=== PATIENT | male | born 1990 | race Asian ===

== ENCOUNTER 2021-12-08 21:33 | Emergency (ER) | payer OTHER ==
--- NOTE | 2021-12-08 21:57 | ED Physician Documentation ---
PD HPI NVD - Stated complaint Stated Complaint: VOMITING BLOOD, BLOODY NOSE, CHILLS - Chief complaint Chief Complaint: Abd Pain - History obtained from History obtained from: Patient - History of Present Illness Timing - onset: Yesterday Timing - duration: Days (11/03) Timing - details: Abrupt onset, Still present Associated symptoms: Loss of appetite, Other (nausea and general weakness, with repetitive vomiting. Has noted red blood from nose and throat after vomiting the past 2-3 times. Some loose stool, but not overt diarrhea.). No: Fever, Abdominal pain Contributing factors: No: Sick contact, Bad food, Travel Improved by: No: Vomiting Worsened by: Eating Similar symptoms before: Has not had sx before Recently seen: Not recently seen Review of Systems Constitutional: reports: Chills, Myalgias, Fatigue. denies: Fever Nose: reports: Congestion, Sinus pressure / pain (has had some frontal sinus pressure and feeling "foggy thinking" for couple of weeks.). denies: Rhinorrhea / runny nose Throat: denies: Sore throat GI: reports: Nausea, Vomiting, Diarrhea. denies: Abdominal Pain, Abdominal Swelling Neurologic: reports: Generalized weakness, Headache (frontal pressure for 1-2 weeks). denies: Near syncope, Altered mental status PD PAST MEDICAL HISTORY - Past Medical History Cardiovascular: None Respiratory: None Neuro: None, Other (denies history of migraines. ) Endocrine/Autoimmune: None GI: None : None Psych: None - Present Medications Home Medications: Ambulatory Orders Medication Instructions Recorded Confirmed Amoxicillin 500 mg PO TID #21 cap 12/09/21 Cetirizine [ZyrTEC] 10 mg PO DAILY #7 tablet 12/09/21 Famotidine [Pepcid] 20 mg PO BID 7 Days #14 tablet 12/09/21 Ondansetron Odt [Zofran] 4 mg TL Q6H PRN #15 tablet 12/09/21 - Allergies Allergies/Adverse Reactions: Allergies Allergy/AdvReac Type Severity Reaction Status Date / Time No Known Drug Allergies Allergy Verified 12/08/21 21:43 PD ED PE NORMAL - Vitals Vital signs reviewed: Yes - General General: Alert and oriented X 3, Well developed/nourished - HEENT HEENT: Ears normal, Pharynx benign. No: Moist mucous membranes - Neck Neck: Supple, no meningeal sign, No adenopathy - Cardiac Cardiac: RRR, No murmur - Respiratory Respiratory: Clear bilaterally - Abdomen Abdomen: Normal bowel sounds, Soft, Non distended, No organomegaly, Other (mild tender epigastric tender without guarding nor rebound. ) - Derm Derm: Normal color, Warm and dry - Extremities Extremities: Normal ROM s pain - Neuro Neuro: Alert and oriented X 3, No motor deficit, Normal speech Results - Vitals Vitals: Vital Signs - 24 hr 12/08/21 12/08/21 12/09/21 21:37 21:43 01:25 Temperature 36.5 C 36.5 C Heart Rate 99 99 89 Respiratory 16 16 17 Rate Blood Pressure 144/93 H 144/93 H 132/67 H O2 Saturation 97 97 99 Oxygen O2 Source Room air - Labs Labs: Laboratory Tests 12/08/21 12/08/21 22:18 22:18 WBC 12.2 H RBC 4.70 Hgb 14.8 Hct 42.5 MCV 90.4 MCH 31.5 H MCHC 34.8 RDW 12.3 Plt Count 317 MPV 9.5 Neut # (Auto) 9.8 H Lymph # (Auto) 1.5 [place] # (Auto) 0.8 Eos # (Auto) 0.0 Baso # (Auto) 0.1 Absolute Nucleated RBC 0.00 Nucleated RBC % 0.0 Sodium 137 Potassium 3.7 Chloride 102 Carbon Dioxide 25 Anion Gap 10.0 BUN 16 Creatinine 1.1 Estimated GFR (MDRD) 78 L Glucose 109 H Calcium 8.7 Total Bilirubin 0.4 AST 29 ALT 34 Alkaline Phosphatase 51 Total Protein 7.0 Albumin 4.0 Globulin 3.0 Albumin/Globulin Ratio 1.3 Lipase 26 PD MEDICAL DECISION MAKING - ED course Complexity details: reviewed results, re-evaluated patient (feeling improved with fluids and meds. ), considered differential (has bleeding slight trickle nasopharynx, and some raw nasal wall on right. Appears sinus/nasopharyngeal bleeding and not hematemesis. He is vomiting, for sure, and will treat with fluids/antiemetics. ), d/w patient Departure - Departure Disposition: 01 Home, Self Care Clinical Impression: Dehydration Nausea and vomiting Qualifiers: Vomiting type: unspecified Qualified Code(s): R11.2 - Nausea with vomiting, unspecified Sinusitis Qualifiers: Sinusitis location: frontal Chronicity: acute Recurrence: non-recurrent Qualified Code(s): J01.10 - Acute frontal sinusitis, unspecified Condition: Stable Record reviewed to determine appropriate education?: Yes Instructions: ED Sinusitis Abx Tx, ED Nausea Vomiting Follow-Up: [facility] [place] [Provider Group] Prescriptions: Amoxicillin 500 mg PO TID #21 cap Famotidine [Pepcid] 20 mg PO BID 7 Days #14 tablet Ondansetron Odt [Zofran] 4 mg TL Q6H PRN #15 tablet PRN Reason: Nausea / Vomiting Cetirizine [ZyrTEC] 10 mg PO DAILY #7 tablet Comments: The bleeding you have seems to be coming from the nasal passage and likely at the sinuses. It sounds like you may have had a sinus infection Preceding this new symptoms. And now sounds like you also have a separate illness with the nausea vomiting and general illness. This may be a viral gastrointestinal illness and there has been one "going around". We did do a Covid test as well and that should result in a day or 2. Amoxicillin 3 times a day for a week for the apparent sinus infection. You can use some saline nasal spray to cleanse the nasal passages a few times daily. Cetirizine daily for a week for congestion. Small frequent fluids and bland food initially. Famotidine acid reducing medicine twice daily for a week as your stomach would have gotten rale with the vomiting. Use ondansetron if needed for nausea. Tylenol if needed for fevers or aches. Recheck if not improving well over the next couple of days. Off work the next couple of days. I transmitted your prescriptions to the pharmacy on the [facility]. You have a Covid test pending. You need to self quarantine until the result is done and negative. Do not leave your house. Do not get near anybody. The results should be done in 48 to 72 hours, but sometimes longer. We will call with a positive result, the fastest way to get a negative result for confirmation though is to go to the hospital website at [email or web address], click [facility] the [facility] and sign up for the patient portal. If any friends or family get sick and would like to have a Covid test done, but do not have signs or symptoms that would necessitate being hospitalized, we encourage testing throughone of the local pharmacies or the Health Department. Call them to schedule an appointment. Forms: Activity restrictions Discharge Date/Time: 12/09/21 01:33
[2021-12-08] MEDS ORDERED: SODIUM CHLORIDE 0.9% 1,000 ML IV STA ×2 (22:13→22:32)
[2021-12-08] MEDS ORDERED: KETOROLAC 30 MG/ML VIAL IVP STA (22:14)
[2021-12-08] MEDS ORDERED: AMOXICILLIN 250 MG CAPSULE PO STA (22:14)
[2021-12-08] MEDS ORDERED: ONDANSETRON 4 MG/2 ML VIAL IVP STA (22:14)
[2021-12-08] MEDS ORDERED: FAMOTIDINE 20 MG/2 ML VIAL IVP STA (22:14)
[2021-12-08 22:25] LABS: BASOPHILS # (AUTO) 0.1 10^3/uL (0.0-0.1); BASOPHILS % (AUTO) 0.7 %; EOSINOPHILS % (AUTO) 0.2 %; HCT - HEMATOCRIT 42.5 % (42.0-52.0); HGB - HEMOGLOBIN 14.8 g/dL (14.0-18.0); LYMPHOCYTES # (AUTO) 1.5 10^3/uL (1.5-3.5); LYMPHOCYTES % (AUTO) 12.1 %; MEAN CORPUSCULAR HEMOGLOBIN 31.5 pg (27.0-31.0); MEAN CORPUSCULAR HGB CONC 34.8 g/dL (32.0-36.0); MEAN CORPUSCULAR VOLUME 90.4 fL (80.0-94.0); MEAN PLATELET VOLUME 9.5 fL (7.4-11.4); MONOCYTES # (AUTO) 0.8 10^3/uL (0.0-1.0); MONOCYTES % (AUTO) 6.4 %; NEUTROPHILS # (AUTO) 9.8 10^3/uL (1.5-6.6); NEUTROPHILS % (AUTO) 80.4 %; PLT - PLATELET COUNT 317 10^3/uL (130-450); RED CELL DISTRIBUTION WIDTH 12.3 % (12.0-15.0); WHITE BLOOD COUNT 12.2 x10^3/uL (4.8-10.8)
[2021-12-08 22:43] LABS: ALBUMIN/GLOBULIN RATIO 1.3 (1.0-2.2); BILIRUBIN,TOTAL 0.4 mg/dL (0.2-1.0); CALCIUM 8.7 mg/dL (8.5-10.3); CREATININE 1.1 mg/dL (0.6-1.2); POTASSIUM 3.7 mmol/L (3.5-5.0)
[2021-12-09] MEDS ORDERED: ONDANSETRON ODT 4 MG Prepack 2 TL PRN (00:25)
[2021-12-09 01:28] VITALS: BP 132/67
== END 2021-12-09 01:33 | disposition home or self-care (01) ==
LOC: ED 21:33
DX: J01.10 Acute frontal sinusitis, unspecified (principal); E86.0 Dehydration; R11.2 Nausea with vomiting, unspecified; Z20.822 Contact with and (suspected) exposure to COVID-19
CPT/HCPCS: 36415; 80053; 83690; 85025; 87635; 96361; 96374; 99283; A9270

== ENCOUNTER 2022-07-28 18:30 | Emergency (ER) | payer OTHER ==
[2022-07-28] MEDS ORDERED: predniSONE 20 MG TABLET PO STA (19:17)
[2022-07-28] MEDS ORDERED: diphenhydrAMINE 25 MG CAPSULE PO STA (19:17)
--- NOTE | 2022-07-28 20:44 | ED Physician Documentation ---
PD HPI SKIN - Stated complaint Stated Complaint: HIVES,LT SIDE FACE NUMB - Chief complaint Chief Complaint: Allergic Rx - History obtained from History obtained from: Patient - Additional information Additional information: The patient comes to the emergency department chief complaint of urticaria/allergic reaction. He states he does not really know what caused it and that he had eaten [employer] for but it was not anything different than he has eaten in the past. The patient is known to have a history of allergy to shrimp but has not eaten any shellfish recently. He states when he had the shrimp he had a very similar reaction. The patient actually received Benadryl and Decadron while waiting to be seen and states his symptoms have completely resolved. He did not have any difficulty breathing but did notice that when his face flushed and he developed the hives, his face went also. He denies any other neurologic symptoms. The patient is otherwise healthy. No other complaints at this time Review of Systems Ten Systems: 10 systems reviewed and negative Constitutional: reports: Reviewed and negative Eyes: reports: Reviewed and negative Ears: reports: Reviewed and negative Nose: reports: Reviewed and negative Throat: reports: Reviewed and negative Cardiac: reports: Reviewed and negative Respiratory: reports: Reviewed and negative GI: reports: Reviewed and negative : reports: Reviewed and negative Skin: reports: Rash Musculoskeletal: reports: Reviewed and negative Neurologic: reports: Reviewed and negative Psychiatric: reports: Reviewed and negative Endocrine: reports: Reviewed and negative Immunocompromised: reports: Reviewed and negative PD PAST MEDICAL HISTORY - Past Medical History Cardiovascular: None Respiratory: None Neuro: None, Other Endocrine/Autoimmune: None GI: None : None Psych: None - Present Medications Home Medications: Ambulatory Orders Medication Instructions Recorded Confirmed predniSONE [Deltasone] 60 mg PO DAILY 3 Days #9 tablet 07/28/22 - Allergies Allergies/Adverse Reactions: Allergies Allergy/AdvReac Type Severity Reaction Status Date / Time No Known Drug Allergies Allergy Verified 07/28/22 18:38 - Social History Does the pt smoke?: No Smoking Status: Never smoker PD ED PE NORMAL - Vitals Vital signs reviewed: Yes - General General: Alert and oriented X 3, No acute distress, Well developed/nourished - HEENT HEENT: Atraumatic, PERRL, EOMI, Moist mucous membranes - Neck Neck: Supple, no meningeal sign - Cardiac Cardiac: RRR, No murmur, Strong equal pulses - Respiratory Respiratory: No respiratory distress, Clear bilaterally - Abdomen Abdomen: Soft, Non tender, Non distended - Derm Derm: Normal color, Warm and dry, No rash - Extremities Extremities: No deformity, No edema - Neuro Neuro: Alert and oriented X 3 - Psych Psych: Normal mood, Normal affect Results - Vitals Vitals: Vital Signs - 24 hr 07/28/22 07/28/22 07/28/22 18:32 19:28 21:00 Temperature 36.6 C 36.6 C Heart Rate 99 79 72 Respiratory 18 16 16 Rate Blood Pressure 145/80 H 128/84 H 122/79 O2 Saturation 97 97 98 Oxygen O2 Source Room air PD MEDICAL DECISION MAKING - ED course Complexity details: considered differential, d/w patient, d/w family ED course: The patient's symptoms had completely resolved and I felt he was stable for discharge home. We have discussed treatment of any recurrent symptoms and the usual indications for follow-up and return. Departure - Departure Disposition: 01 Home, Self Care Clinical Impression: Allergic urticaria Condition: Stable Instructions: ED Allergic Reaction General Other Prescriptions: predniSONE [Deltasone] 60 mg PO DAILY 3 Days #9 tablet Comments: A prescription for prednisone has been electronically transmitted to the [facility] pharmacy. You may take this daily for the next few days, plus Benadryl 25 to 50 mg every 4-6 hours if needed for recurrence of allergic symptoms. Please follow-up with your doctor for further concerns in this regard. If you begin to experience swelling of your throat or shortness of breath/difficulty breathing again please return to the emergency department. Discharge Date/Time: 07/28/22 21:21
[2022-07-28 21:01] VITALS: BP 122/79
== END 2022-07-28 21:21 | disposition home or self-care (01) ==
LOC: ED 18:30
DX: L50.0 Allergic urticaria (principal)
CPT/HCPCS: 99282; A9270; J7512

== ENCOUNTER 2022-08-07 11:37 | Emergency (ER) | payer OTHER ==
[2022-08-07] MEDS ORDERED: LIDOCAINE PATCH 5% TOP STA (12:03)
[2022-08-07] MEDS ORDERED: methocarbamoL 500 MG TABLET PO STA (12:03)
[2022-08-07] MEDS ORDERED: KETOROLAC 30 MG/ML VIAL IM STA (12:03)
[2022-08-07] MEDS ORDERED: DEXAMETHASONE 10 MG/ML VIAL IM STA (12:03)
--- NOTE | 2022-08-07 12:03 | ED Physician Documentation ---
PD HPI BACK PAIN - Stated complaint Stated Complaint: L LOWER BACK PX-SWOLLEN - Chief complaint Chief Complaint: Back Pain - History obtained from History obtained from: Patient - History of Present Illness Timing - onset: Chronic - Additional information Additional information: 32-year-old male presents for evaluation of 1 day of severe left-sided lumbar back pain and swelling. Patient states that he has had chronic issues with his lumbar back, he has been requesting to have his massage his lumbar muscles nightly because of pain. Last night the pain was much more severe and there is a large area of swelling over his left hip and lumbar back.He has intermittently been taking 200 mg of ibuprofen for his pain, however this is only helping somewhat. Denies midline back pain, denies saddle anesthesia, denies bowel or bladder incontinence, denies numbness or weakness of his lower extremities.Patient's states that she has been trying to get him to go to physical therapy for his back issues, however he has been reluctant to do so. Review of Systems Ten Systems: 10 systems reviewed and negative Constitutional: denies: Fever, Chills, Myalgias Respiratory: denies: Dyspnea, Cough, Wheezing : denies: Dysuria, Frequency, Hesitancy, Unable to Void Musculoskeletal: reports: Back pain, Joint pain. denies: Neck pain, Extremity pain Neurologic: denies: Generalized weakness, Focal weakness, Numbness, Difficulty speaking, Near syncope PD PAST MEDICAL HISTORY - Past Medical History Cardiovascular: None Respiratory: None Neuro: None, Other Endocrine/Autoimmune: None GI: None : None Psych: None - Present Medications Home Medications: Ambulatory Orders Medication Instructions Recorded Confirmed Lidocaine Patch 5% [Lidoderm Patch] 1 each TOP BID PRN #10 patch 08/07/22 methocarbamoL [Robaxin] 500 mg PO Q6H #30 tablet 08/07/22 - Allergies Allergies/Adverse Reactions: Allergies Allergy/AdvReac Type Severity Reaction Status Date / Time No Known Drug Allergies Allergy Verified 07/28/22 18:38 - Social History Does the pt smoke?: No Smoking Status: Never smoker PD ED PE NORMAL - Vitals Vital signs reviewed: Yes - General General: Alert and oriented X 3, No acute distress, Well developed/nourished - HEENT HEENT: Atraumatic, PERRL, EOMI, Ears normal - Neck Neck: Supple, no meningeal sign, No bony TTP, C-Spine cleared by NEXUS criteria - Cardiac Cardiac: RRR, No murmur, Strong equal pulses - Respiratory Respiratory: No respiratory distress, Clear bilaterally - Abdomen Abdomen: Soft, Non tender, Non distended - Back Back: No CVA TTP, No spinal TTP, Other (L gluteal and paraspinal muscle tenderness to palpation. No midline spinal tenderness) - Derm Derm: Normal color, Warm and dry, No rash - Extremities Extremities: No deformity, Normal ROM s pain, No edema - Neuro Neuro: Alert and oriented X 3, golf ball cover treater 2-12 intact, No motor deficit, No sensory deficit, Normal speech - Psych Psych: Normal mood, Normal affect Results - Vitals Vitals: Vital Signs - 24 hr 08/07/22 08/07/22 11:41 13:50 Temperature 37.0 C 36.5 C Heart Rate 59 L 59 L Respiratory 16 16 Rate Blood Pressure 127/75 124/78 O2 Saturation 99 100 Oxygen O2 Source Room air PD MEDICAL DECISION MAKING - ED course Complexity details: reviewed old records, reviewed results, re-evaluated patient, considered differential, d/w patient ED course: Well-appearing male presenting for acute worsening of his chronic lumbar back pain. Significant muscle spasm in the lower lumbar and gluteal region, no midline vertebral tenderness. No signs or symptoms of cauda equina. No trauma by history. Given numerous nonnarcotic pain medications with improvement. Patient was counseled on gentle stretching exercises for his lumbar pain. He was counseled to follow-up with his primary care doctor and encouraged to attend physical therapy for improvement of his chronic back pain. Robaxin and anti- inflammatory sent to pharmacy, patient was counseled to take these medications with Tylenol for relief of his symptoms. Patient's stated that they would call first thing in the morning to make an appointment with physical therapy. Departure - Departure Disposition: 01 Home, Self Care Clinical Impression: Back pain, Muscle spasm Condition: Stable Instructions: Muscle Spasm, Hip Rotation Prescriptions: Lidocaine Patch 5% [Lidoderm Patch] 1 each TOP BID PRN #10 patch PRN Reason: back pain methocarbamoL [Robaxin] 500 mg PO Q6H #30 tablet Comments: You were seen today for muscle spasm and back pain. Several medications for muscle spasm and back pain have been sent to the pharmacy. I recommend that you take these with Tylenol and Motrin alternating. In addition I highly recommend that you perform gentle stretching exercises and follow-up with physical therapy. I do not expect that this will improve overnight, however with time and with medications and physical therapy you should feel much better within several weeks. Discharge Date/Time: 08/07/22 13:56
[2022-08-07 13:51] VITALS: BP 124/78
== END 2022-08-07 13:56 | disposition home or self-care (01) ==
LOC: ED 11:37
DX: M54.50 Low back pain, unspecified (principal); G89.29 Other chronic pain; M62.830 Muscle spasm of back
CPT/HCPCS: 96372; 99282; 99283; A9270